=== PATIENT | male | born 1995 | race Caucasian/White ===

== ENCOUNTER 2024-08-08 14:29 | Outpatient (AMB) | payer MEDICAID, SELFPAY ==
[2024-08-08 14:41] VITALS: BP 111/72; PULSE 63; RESP 14; TEMP 36.7; O2SAT 98; BMI 32.1
--- NOTE | 2024-08-08 14:41 | ACNOTE_ITS ---
Vital Signs 08/08/24 14:41 Height 1.85 m Height Method Stated Weight 110.45 kg Weight Measurement Method Standing Scale BMI 32.1 BP 111/72 Blood Pressure Source Automatic Cuff Blood Pressure Location Left Upper Arm Position Sitting Respiration 14 Pulse 63 Pulse Source Monitor Temp 98.1 F Temp Source Oral Pulse Oximetry (%) 98 Oxygen Delivery Method Room Air Allergies/Meds Allergies & Medications Allergies No Known Allergies Allergy (Verified 08/08/24 14:43) Medication Reconciliation blood pressure test kit-large #1 ea 10/10/23 [Rx Confirmed 08/08/24] blood sugar diagnostic (Blood Glucose Test strips) #50 ea 10/10/23 [Rx Confirmed 08/08/24] atorvastatin 40 mg tablet 40 mg PO QHS 30 days #30 tabs 12/19/23 [Rx Confirmed 08/08/24] insulin lispro 100 unit/mL subcutaneous pen 8 unit (0.08 mL) subcut TID #12 mL 12/19/23 [Rx Confirmed 08/08/24] insulin glargine 100 unit/mL (3 mL) subcutaneous pen (Lantus Solostar U-100 Insulin) 40 unit (0.4 mL) subcut .qhs #15 mL 06/11/24 [Rx Confirmed 08/08/24] pen needle, diabetic 32 gauge x 1/4 (Comfort EZ Pen Posey) #100 ea 06/11/24 [Rx Confirmed 08/08/24] Mounjaro 2.5 mg/0.5 mL subcutaneous pen injector (tirzepatide) 2.5 mg (0.5 mL) subcut QWEEK 1 month #2 mL 08/08/24 [Rx] lisinopril 5 mg tablet 5 mg PO QDAY 30 days #30 tabs 08/08/24 [Rx] MA Intake Visit Data Collection New Patient or Established: Established Patient (seen at [facility] within 3 years) Seen by Clinical Staff ONLY (RN/MA): No Pain Present Currently: No Pain scale:: 0 Pain Scale Used: Marx-Argueta/Numerical PCP or OBGYN visit in last 3 months: No Smoking Status Smoking Status: Never smoker Immunization / Flu Flu Vaccine in the Last 12 Months: No Flu Vaccine Exclusion Criteria: No Exclusion Criteria Past Medical History Past Medical History NEUROLOGIC: Negative Neurological Disorders CARDIAC: Positive Hypertension; Negative Cardiac Disorders or Congestive Heart Failure RESPIRATORY: Negative Chronic Obstructive Pulmonary Disease (COPD) or Asthma GASTROINTESTINAL: Negative Gastrointestinal Disorders GENITOURINARY: Negative Genitourinary Disorders or Renal Disease ENDOCRINE: Positive Endocrine Disorders and Diabetes Mellitus Type 2; Negative Diabetes Mellitus Type 1 HEMATOLOGIC: Negative Blood Disorders or Sickle Cell Disease OTHER HISTORY: Negative Autoimmune Disease, Blood Transfusions, Anesthesia Reactions, MRSA, Clostridium Difficile or Cancer Surgical History SURGICAL: Negative Abdominal Surgery, Joint Replacement or Neurologic Surgery Social History SMOKING STATUS: Smoking status: Never smoker SECOND HAND EXPOSURE: second hand exposure: No ALCOHOL: Alcohol Intake: Current ALCOHOL FREQUENCY: Alcohol Intake Frequency: holidays/special occasions only HOUSING: Housing: Apartment LIVES WITH: Lives With: Spouse Patient Portal Wesley Social History Living Situation History Housing: Apartment Housing Other:: pt lives with fiance Tobacco History Smoking Status: Never smoker Packs per Day: 1 Number of Smoking Years (pipe): 6 Second Hand Smoke Exposure: No Alcohol History Alcohol Intake: Current Alcohol Intake Frequency: holidays/special occasions only Review of Systems Report any current symptoms Only answer those that you have currently: Past Medical History Past Medical History Have you ever been diagnosed with any of the following: Cardiology Problems Congestive Heart Failure: No Hypertension: Yes Respiratory Problems Chronic Obstructive Pulmonary Disease (COPD): No Asthma: No Genital/Urinary Problems Renal Disease: No Endocrine Problems Diabetes Mellitus Type 1: No Diabetes Mellitus Type 2: Yes Blood Problems Sickle Cell Disease: No Other Problems Autoimmune Disease: No Blood Transfusions: No Anesthesia Reactions: No MRSA: No Clostridium Difficile: No Cancer: No History of Present Illness HPI Narrative Patient presents to clinic for follow-up. He states that he was not exercising or following his many dietary restrictions during the holidays/month of June. This is reflected by an increase in his BMI to 32.1 from 30.7. Patient does endorse starting his dietary restrictions/meal plan/exercising, including cardio 3 times per week and intermittent fasting. Patient also states his Dexcom CGM has not been working as previously. Auth was submitted for [employer], currently pending. He has been occasionally checking his blood sugars with by [id number] with fasting blood sugars in 150s. Additionally for obesity/type 2 diabetes, patient is requesting to start a GLP- 1, which was previously prescribed however patient was unable to pick it up due to insurance problems. Will resend Mounjaro 2.5 mg and follow-up if prior Auth is needed. Patient also endorses having normal blood pressures and occasionally does not take 10 mg lisinopril. Will changes to 5 mg. Patient additionally did not have CT abdomen pelvis done to evaluate for pseudocyst growth. Will resend order for CT abdomen pelvis with contrast. Review of Systems Review of Systems Systems Reviewed: All systems reviewed, normal except as documented Objective/Exam Narrative Physical exam: Gen: AAOx3, pleasant to speak with HEENT: MMM, no LAD CVS: normal S1, S2. RRR. No MRG Resp: CTA B/L. No adventitious breath sounds Abd: soft, non-tender, non-distended. BS+ in all 4 quadrants MSK: Good ROM in BUE & BLE. No edema noted Neuro: CN II-XII grossly intact. Strength 5/5 in BUE & 5/5 in BLE. Psych: appropriate mood and affect. 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 He does check his fasting blood sugars which have been approximately 140s?150s at approximately 4 AM when he wakes up for work Plan: Last A1c 6.9. Ordered A1c, CMP and lipid panel, with patient to follow-up on 08/15/2024 Patient pending switch from Dexcom to freestyle bree's (2) Obesity (BMI 30.0-34.9): Status: Acute Assessment & Plan: Patient BMI increased to 32.1 from 30.7, patient states this is related to poor diet/lifestyle choices during June/holidays, and has since resumed his meal plan/portion control/exercise regimen Plan: Encouraged to continue dietary and lifestyle modifications Due to patient having type 2 diabetes and increasing fasting blood sugars, will reorder Mounjaro 2.5 mg to assist with tighter glycemic control and help with weight loss Follow-up labs as ordered above (3) Hypertension: Status: Chronic Qualifiers: Hypertension type: primary hypertension Qualified Code(s): I10 - Essential (primary) hypertension Assessment & Plan: patient occasionally forgets to take 10 mg lisinopril with blood pressure in normal range Plan: Will change lisinopril to 5 mg daily (4) Pseudocyst of pancreas due to acute pancreatitis: Status: Acute Assessment & Plan: Pseudocyst was seen on previous CT scans (September 2023, November 2023) Plan: Reordered CT abdomen pelvis with contrast to further reevaluate pancreatic pseudocyst Plan Patient needs freestyle bree's to monitor blood sugars Follow-up labs including A1c, lipid panel and CMP Added Mounjaro 2.5 mg for diabetes and obesity Decrease lisinopril to 5 mg daily Orders: Orders CT abdomen pelvis w con 09/10/24 K85.90 - Acute pancreatitis without necrosis or infection, unspecified, K86.3 - Pseudocyst of pancreas Additional Assessment Internal Medicine Attending Note: Case discussed with and agree with note and management plan of Resident Physician as per Resident's Note above. Issues of concern for present visit are as follows: Follow-up visit. Diabetes self-care reviewed including diet, exercise, footcare, eye care. Was not following dietary guidelines/exercising since last visit. BMI increased to 32.1 from 30.7. CGM has not been working. Random fingersticks ranging in the upper 100s. For now, we will continue patient on basal bolus insulin regimen, with emphasis on compliance with diet and exercise measures. Recheck hemoglobin A1c for next visit. We will resend a prescription for a CGM. We will again try to order a GLP-1 for patient. Given blood pressure readings, we will decrease lisinopril to 5 mg daily. We will do a 6-month recheck of his CT scan of abdomen pelvis to reevaluate pancreatic pseudocyst. Faustino Mccann MD Physician Billing Established Patient Established Patient: E/M Level 3-CPT 15596 Office Procedures [facility] Level of Care Nursing/Assessment Patient Status: Established Patient Nursing Assessment/Reassessment: Medication Reconciliation, Update PMH in EMR and Vital Signs Coordination of Care: Complex Care and Chronic Disease 1-5, Consent,records obtained, informed consent, Education Simp Pt/Fam, Lab and Imaging orders and Staff clarify orders Established Patient Charge Established Patient Point Assignment: 100 Established Patient Point Charge: EP Level 3 (80-115)
== END 2024-08-08 16:00 | disposition home or self-care (01) ==
LOC: HODAHC 14:29
PROVIDERS: PCP Student in an Organized Health Care Education/Training Program; Referring Provider Student in an Organized Health Care Education/Training Program; Supervising Provider Internal Medicine; Visit Provider Student in an Organized Health Care Education/Training Program
DX: K86.3 Pseudocyst of pancreas (principal); E11.9 Type 2 diabetes mellitus without complications; Z79.4 Long term (current) use of insulin; E66.9 Obesity, unspecified; Z68.32 Body mass index [BMI] 32.0-32.9, adult; I10 Essential (primary) hypertension
CPT/HCPCS: 99213; G0463

== ENCOUNTER 2024-08-22 14:04 | Outpatient (AMB) | payer MEDICAID, SELFPAY ==
[2024-08-22 14:28] VITALS: BP 124/80; PULSE 74; RESP 18; TEMP 36.7; O2SAT 98; BMI 31.7
--- NOTE | 2024-08-22 14:28 | ACNOTE_ITS ---
Vital Signs 08/22/24 14:28 Height 1.85 m Height Method Stated Weight 108.635 kg Weight Measurement Method Standing Scale BMI 31.7 BP 124/80 Blood Pressure Source Automatic Cuff Blood Pressure Location Left Upper Arm Position Sitting Respiration 18 Pulse 74 Pulse Source Monitor Temp 98.1 F Temp Source Temporal Artery Scan Pulse Oximetry (%) 98 Oxygen Delivery Method Room Air Allergies/Meds Allergies & Medications Allergies No Known Allergies Allergy (Verified 08/22/24 14:31) Medication Reconciliation blood pressure test kit-large #1 ea 10/10/23 [Rx Confirmed 08/22/24] blood sugar diagnostic (Blood Glucose Test strips) #50 ea 10/10/23 [Rx Confirmed 08/22/24] atorvastatin 40 mg tablet 40 mg PO QHS 30 days #30 tabs 12/19/23 [Rx Confirmed 08/22/24] insulin glargine 100 unit/mL (3 mL) subcutaneous pen (Lantus Solostar U-100 Insulin) 40 unit (0.4 mL) subcut .qhs #15 mL 06/11/24 [Rx Confirmed 08/22/24] pen needle, diabetic 32 gauge x 1/4 (Comfort EZ Pen Franklin) #100 ea 06/11/24 [Rx Confirmed 08/22/24] Mounjaro 2.5 mg/0.5 mL subcutaneous pen injector (tirzepatide) 2.5 mg (0.5 mL) subcut QWEEK 1 month #2 mL 08/08/24 [Rx Confirmed 08/22/24] lisinopril 5 mg tablet 5 mg PO QDAY 30 days #30 tabs 08/08/24 [Rx Confirmed 08/22/24] insulin lispro 100 unit/mL subcutaneous pen 8 unit (0.08 mL) subcut TID #12 mL 08/21/24 [Rx Confirmed 08/22/24] metformin 500 mg tablet,extended release 24 hr 500 mg PO QDAY 30 days #30 tabs 08/22/24 [Rx] MA Intake Visit Data Collection New Patient or Established: Established Patient (seen at [facility] within 3 years) Seen by Clinical Staff ONLY (RN/MA): No Pain Present Currently: No Pain scale:: 0 Pain Scale Used: Geovanna/Numerical Cordwood Cutter Helper Required: No PCP or OBGYN visit in last 3 months: Yes Hx Now: No Do You Feel Safe at Home: Yes Authorities Contacted: N/A Smoking Status Smoking Status: Never smoker Immunization / Flu Flu Vaccine in the Last 12 Months: No Flu Vaccine Exclusion Criteria: No Exclusion Criteria Past Medical History Past Medical History NEUROLOGIC: Negative Neurological Disorders CARDIAC: Positive Hypertension; Negative Cardiac Disorders or Congestive Heart Failure RESPIRATORY: Negative Chronic Obstructive Pulmonary Disease (COPD) or Asthma GASTROINTESTINAL: Negative Gastrointestinal Disorders GENITOURINARY: Negative Genitourinary Disorders or Renal Disease ENDOCRINE: Positive Endocrine Disorders and Diabetes Mellitus Type 2; Negative Diabetes Mellitus Type 1 HEMATOLOGIC: Negative Blood Disorders or Sickle Cell Disease OTHER HISTORY: Negative Autoimmune Disease, Blood Transfusions, Anesthesia Reactions, MRSA, Clostridium Difficile or Cancer Surgical History SURGICAL: Negative Abdominal Surgery, Joint Replacement or Neurologic Surgery Social History SMOKING STATUS: Smoking status: Never smoker SECOND HAND EXPOSURE: second hand exposure: No ALCOHOL: Alcohol Intake: Current ALCOHOL FREQUENCY: Alcohol Intake Frequency: holidays/special occasions only HOUSING: Housing: Apartment LIVES WITH: Lives With: Spouse Patient Portal Wesley Social History Living Situation History Housing: Apartment Housing Other:: pt lives with fiance Tobacco History Smoking Status: Never smoker Packs per Day: 1 Number of Smoking Years (pipe): 6 Second Hand Smoke Exposure: No Alcohol History Alcohol Intake: Current Alcohol Intake Frequency: holidays/special occasions only Domestic Abuse History Do You Feel Safe at Home: Yes Review of Systems Report any current symptoms Only answer those that you have currently: Past Medical History Past Medical History Have you ever been diagnosed with any of the following: Cardiology Problems Congestive Heart Failure: No Hypertension: Yes Respiratory Problems Chronic Obstructive Pulmonary Disease (COPD): No Asthma: No Genital/Urinary Problems Renal Disease: No Endocrine Problems Diabetes Mellitus Type 1: No Diabetes Mellitus Type 2: Yes Blood Problems Sickle Cell Disease: No Other Problems Autoimmune Disease: No Blood Transfusions: No Anesthesia Reactions: No MRSA: No Clostridium Difficile: No Cancer: No History of Present Illness HPI Narrative 08/26/2024: Patient returns to clinic for 2 week follow up after labs. A1c increased to 7.6 from 6.9 (March 2024), and fasting blood glucose on chem panel was 185. HDL & triglycerides have improved significantly. Since last visit, patient has already lost ~2kg with strict diet and exercise 4-5x/week, although BMI remains >30. Patient has also started intermittent fasting, and si nce blood sugars are still elevated, will add metformin to current regimen. He was advised to monitor for signs/symptoms of hypoglycemia. Patient to follow up in 2 weeks with repeat labs to evaluate renal/liver function. Patient is still pending authorization for GLP-1, as well as Freestyle Yvon CGM. CT A/P to evaluate pseudocyst is scheduled for September 2023. Review of Systems Review of Systems Systems Reviewed: All systems reviewed, normal except as documented Objective/Exam Narrative Physical exam: Gen: AAOx3, obese male, pleasant to speak with HEENT: MMM, no LAD CVS: normal S1, S2. RRR. No MRG Resp: CTA B/L. No adventitious breath sounds Abd: soft, non-tender, non-distended. BS+ in all 4 quadrants MSK: Good ROM in BUE & BLE. No edema noted Neuro: CN II-XII grossly intact. Strength 5/5 in BUE & 5/5 in BLE. Psych: appropriate mood and affect. 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 Fasting blood sugars have been 150-200s, with most recent FBG on chem panel 185. A1c returned 7.6% (increased from 6.9%) Plan: Added Metformin ER 500mg qDay for tighter glycemic control Patient advised to monitor for hypoglycemia as he is on insulin as well Repeat labs ordered in 2 weeks to evaluate renal/liver function Pending Freestyle Yvon auth (2) Obesity (BMI 30.0-34.9): Status: Acute Assessment & Plan: BMI improved; now 31.7 (from 32.1 2 weeks ago); remains >30 Attributes 5 lbs weight loss in last 2 weeks to strict diet and exercising 4- 5x/week Plan: Encouraged to continue dietary and lifestyle modifications Pending GLP-1 auth; GLP-1 will help patient lose weight and control blood sugars Discussed possibly sending referral to dietitian/bathing suit maker at next visit (3) Hypercholesteremia: Status: Chronic Assessment & Plan: Lipid panel showing improvement HDL increased; triglycerides downtrending Plan: Advised to continue diet/lifestyle modifications and continue atorvastatin (4) Pseudocyst of pancreas due to acute pancreatitis: Status: Acute Assessment & Plan: Pseudocyst was seen on previous CT scans (September 2023, November 2023) Plan: Reordered CT abdomen pelvis with contrast to further reevaluate pancreatic pseudocyst, with CT scheduled for September Plan Pending CGM and GLP-1 auth Follow up chem panel after starting metformin RTC in 2 weeks for follow up Office Procedures [facility] Level of Care Nursing/Assessment Patient Status: Established Patient Nursing Assessment/Reassessment: Medication Reconciliation, Update PMH in EMR and Vital Signs Coordination of Care: Complex Care and Chronic Disease 1-5, Consent,records obtained, informed consent, Education Simp Pt/Fam, Lab and Imaging orders and Staff clarify orders Established Patient Charge Established Patient Point Assignment: 100 Established Patient Point Charge: EP Level 3 (80-115)
== END 2024-08-22 15:34 | disposition home or self-care (01) ==
LOC: HODAHC 14:04
PROVIDERS: PCP Student in an Organized Health Care Education/Training Program; Referring Provider Student in an Organized Health Care Education/Training Program; Supervising Provider Student in an Organized Health Care Education/Training Program; Visit Provider Student in an Organized Health Care Education/Training Program
DX: E11.10 Type 2 diabetes mellitus with ketoacidosis without coma (principal); Z79.4 Long term (current) use of insulin; E66.9 Obesity, unspecified; Z68.31 Body mass index [BMI] 31.0-31.9, adult; E78.00 Pure hypercholesterolemia, unspecified; K86.3 Pseudocyst of pancreas
CPT/HCPCS: 99213; G0463

== ENCOUNTER 2024-09-05 13:19 | Outpatient (AMB) | payer MEDICAID, SELFPAY ==
[2024-09-05 13:32] VITALS: BP 134/86; PULSE 75; RESP 14; TEMP 36.7; O2SAT 98; BMI 31.6
--- NOTE | 2024-09-05 13:32 | PD.RESCLINIC ---
Vital Signs 09/05/24 13:32 Height 1.85 m Height Method Stated Weight 108.068 kg Weight Measurement Method Standing Scale BMI 31.6 BP 134/86 H Blood Pressure Source Automatic Cuff Blood Pressure Location Left Upper Arm Position Sitting Respiration 14 Pulse 75 Pulse Source Monitor Temp 98.1 F Temp Source Oral Pulse Oximetry (%) 98 Oxygen Delivery Method Room Air Allergies/Meds Allergies & Medications Allergies No Known Allergies Allergy (Verified 09/05/24 13:34) Medication Reconciliation blood pressure test kit-large #1 ea 10/10/23 [Rx Confirmed 09/05/24] blood sugar diagnostic (Blood Glucose Test strips) #50 ea 10/10/23 [Rx Confirmed 09/05/24] atorvastatin 40 mg tablet 40 mg PO QHS 30 days #30 tabs 12/19/23 [Rx Confirmed 09/05/24] insulin glargine 100 unit/mL (3 mL) subcutaneous pen (Lantus Solostar U-100 Insulin) 40 unit (0.4 mL) subcut .qhs #15 mL 06/11/24 [Rx Confirmed 09/05/24] pen needle, diabetic 32 gauge x 1/4 (Comfort EZ Pen [place]) #100 ea 06/11/24 [Rx Confirmed 09/05/24] Mounjaro 2.5 mg/0.5 mL subcutaneous pen injector (tirzepatide) 2.5 mg (0.5 mL) subcut QWEEK 1 month #2 mL 08/08/24 [Rx Confirmed 09/05/24] lisinopril 5 mg tablet 5 mg PO QDAY 30 days #30 tabs 08/08/24 [Rx Confirmed 09/05/24] insulin lispro 100 unit/mL subcutaneous pen 8 unit (0.08 mL) subcut TID #12 mL 08/21/24 [Rx Confirmed 09/05/24] metformin 500 mg tablet,extended release 24 hr 500 mg PO QDAY 30 days #30 tabs 08/22/24 [Rx Confirmed 09/05/24] MA Intake Visit Data Collection New Patient or Established: Established Patient (seen at [facility] within 3 years) Seen by Clinical Staff ONLY (RN/MA): No Pain Present Currently: No Pain scale:: 0 Pain Scale Used: MarxEdith/Numerical Manager Therapy Required: No PCP or OBGYN visit in last 3 months: Yes Hx Now: No Do You Feel Safe at Home: Yes Authorities Contacted: N/A Smoking Status Smoking Status: Never smoker Immunization / Flu Flu Vaccine in the Last 12 Months: No Flu Vaccine Exclusion Criteria: No Exclusion Criteria Past Medical History Past Medical History NEUROLOGIC: Negative Neurological Disorders CARDIAC: Positive Hypertension; Negative Cardiac Disorders or Congestive Heart Failure RESPIRATORY: Negative Chronic Obstructive Pulmonary Disease (COPD) or Asthma GASTROINTESTINAL: Negative Gastrointestinal Disorders GENITOURINARY: Negative Genitourinary Disorders or Renal Disease ENDOCRINE: Positive Endocrine Disorders and Diabetes Mellitus Type 2; Negative Diabetes Mellitus Type 1 HEMATOLOGIC: Negative Blood Disorders or Sickle Cell Disease OTHER HISTORY: Negative Autoimmune Disease, Blood Transfusions, Anesthesia Reactions, MRSA, Clostridium Difficile or Cancer Surgical History SURGICAL: Negative Abdominal Surgery, Joint Replacement or Neurologic Surgery Social History SMOKING STATUS: Smoking status: Never smoker SECOND HAND EXPOSURE: second hand exposure: No ALCOHOL: Alcohol Intake: Current ALCOHOL FREQUENCY: Alcohol Intake Frequency: holidays/special occasions only HOUSING: Housing: Apartment LIVES WITH: Lives With: Spouse Patient Portal Questionaires PHQ-9 PHQ-2 Over the last 2 weeks, how often have you been bothered by any of the following problems? 1. Little interest or pleasure in doing things: not at all 2. Feeling down, depressed, or hopeless: not at all Total score: 0 PHQ-9 3. Trouble falling or staying asleep, or sleeping too much: Not at all 4. Feeling tired or having little energy: Not at all 5. Poor appetite or overeating: Not at all 6. Feeling bad about yourself - or that you are a failure or have let yourself or your family down: Not at all 7. Trouble concentrating on things, such as reading the newspaper or watching television: Not at all 8. Moving or speaking so slowly that other people could have noticed? - Or the opposite - being so fidgety or restless that you have been moving around a lot more than usual: not at all 9. Thoughts that you would be better off or of hurting yourself in some way: Not at all Total score: 0 Source: Developed by Drs. Truman Carlson, Chetna Bearden, Jj Foster and colleagues, with an educational kemal from [employer]. Depression screen completed yes Social History Living Situation History Housing: Apartment Housing Other:: pt lives with fiance Tobacco History Smoking Status: Never smoker Packs per Day: 1 Number of Smoking Years (pipe): 6 Second Hand Smoke Exposure: No Alcohol History Alcohol Intake: Current Alcohol Intake Frequency: holidays/special occasions only Domestic Abuse History Do You Feel Safe at Home: Yes Review of Systems Report any current symptoms Only answer those that you have currently: Past Medical History Past Medical History Have you ever been diagnosed with any of the following: Cardiology Problems Congestive Heart Failure: No Hypertension: Yes Respiratory Problems Chronic Obstructive Pulmonary Disease (COPD): No Asthma: No Genital/Urinary Problems Renal Disease: No Endocrine Problems Diabetes Mellitus Type 1: No Diabetes Mellitus Type 2: Yes Blood Problems Sickle Cell Disease: No Other Problems Autoimmune Disease: No Blood Transfusions: No Anesthesia Reactions: No MRSA: No Clostridium Difficile: No Cancer: No History of Present Illness HPI Narrative 09/05: Patient returns to follow up after having labs drawn after initiating metformin. Renal and liver function within normal limits. Fasting glucose noted to be 122 on chem panel. Patient endorses improvement of fasting levels when checking at home, now 120-140s. He continues to follow diet/lifestyle modifications. He denies any hypoglycemic symptoms, lightheaded/dizziness, polyuria/polydipsia. Patient also spoke with company providing CGM, who are requesting Tax ID number, and will get that provided so patient can receive [employer] yvon. BMI 31.6 today, with patient losing ~3kg since 08/08/[address] A/P scheduled for September 10. Review of Systems Review of Systems Systems Reviewed: All systems reviewed, normal except as documented Objective/Exam Narrative Physical exam: Gen: AAOx3, obese male, pleasant to speak with HEENT: MMM, no LAD CVS: normal S1, S2. RRR. No MRG Resp: CTA B/L. No adventitious breath sounds Abd: soft, non-tender, non-distended. BS+ in all 4 quadrants MSK: Good ROM in BUE & BLE. No edema noted Neuro: CN II-XII grossly intact. Strength 5/5 in BUE & 5/5 in BLE. Psych: appropriate mood and affect. 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 Metformin ER 500mg BID was added at last visit. Renal & Liver function wnl Since then, FBG much better (120-140s) Plan: Continue Insulin and Metformin as prescribed. Patient advised to monitor for hypoglycemia as he is on insulin as well Monitor blood glucose at home Pending Freestyle Yvon auth --> will send Tax ID to [employer] (2) Obesity (BMI 30.0-34.9): Status: Acute Assessment & Plan: BMI improved; now 31.6 (from 32.1 in July); remains >30 Plan: Encouraged to continue dietary and lifestyle modifications Pending GLP-1 auth; GLP-1 will help patient lose weight and control blood sugars. CGM is crucial as patient does not have time to check finger stick POC while at work. Discussed possibly sending referral to dietitian/workers compensation manager Additional Plan Return to clinic on October 03 for follow up of CT A/P (pseudocyst) as well as diabetes follow up Office Procedures [facility] Level of Care Nursing/Assessment Patient Status: Established Patient Nursing Assessment/Reassessment: Medication Reconciliation, Update PMH in EMR and Vital Signs Coordination of Care: Complex Care and Chronic Disease 1-5, Consent,records obtained, informed consent, Education Simp Pt/Fam, Results/Orders obtained and Staff clarify orders Established Patient Charge Established Patient Point Assignment: 90 Established Patient Point Charge: EP Level 3 (80-115)
== END 2024-09-05 13:48 | disposition home or self-care (01) ==
LOC: HODAHC 13:19
PROVIDERS: PCP Student in an Organized Health Care Education/Training Program; Referring Provider Student in an Organized Health Care Education/Training Program; Supervising Provider Internal Medicine; Visit Provider Student in an Organized Health Care Education/Training Program
DX: E11.10 Type 2 diabetes mellitus with ketoacidosis without coma (principal); E66.9 Obesity, unspecified; Z68.31 Body mass index [BMI] 31.0-31.9, adult; Z79.84 Long term (current) use of oral hypoglycemic drugs; Z79.4 Long term (current) use of insulin; Z71.2 Person consulting for explanation of examination or test findings
CPT/HCPCS: 99213; G0463

== ENCOUNTER 2024-10-03 13:13 | Outpatient (AMB) | payer MEDICAID, SELFPAY ==
[2024-10-03 13:28] VITALS: BP 127/71; PULSE 70; RESP 16; TEMP 36.3; O2SAT 98; BMI 31.0
--- NOTE | 2024-10-03 13:28 | ACNOTE_ITS ---
Vital Signs 10/03/24 13:28 Height 1.85 m Height Method Stated Weight 106.821 kg Weight Measurement Method Standing Scale BMI 31.0 BP 127/71 Blood Pressure Source Automatic Cuff Blood Pressure Location Left Upper Arm Position Sitting Respiration 16 Pulse 70 Pulse Source Monitor Temp 97.3 F Temp Source Temporal Artery Scan Pulse Oximetry (%) 98 Oxygen Delivery Method Room Air Allergies/Meds Allergies & Medications Allergies No Known Allergies Allergy (Verified 10/03/24 13:29) Medication Reconciliation blood pressure test kit-large #1 ea 10/10/23 [Rx Confirmed 10/03/24] blood sugar diagnostic (Blood Glucose Test strips) #50 ea 10/10/23 [Rx Confirmed 10/03/24] pen needle, diabetic 32 gauge x 1/4 (Comfort EZ Pen [place]) #100 ea 06/11/24 [Rx Confirmed 10/03/24] lisinopril 5 mg tablet 5 mg PO QDAY 30 days #30 tabs 08/08/24 [Rx Confirmed 10/03/24] insulin lispro 100 unit/mL subcutaneous pen 8 unit (0.08 mL) subcut TID #12 mL 08/21/24 [Rx Confirmed 10/03/24] metformin 500 mg tablet,extended release 24 hr 500 mg PO QDAY 30 days #30 tabs 08/22/24 [Rx Confirmed 10/03/24] atorvastatin 40 mg tablet 40 mg PO QHS 30 days #30 tabs 10/03/24 [Rx] insulin glargine 100 unit/mL (3 mL) subcutaneous pen (Lantus Solostar U-100 Insulin) 40 unit (0.4 mL) subcut .qhs #15 mL 10/03/24 [Rx] ondansetron 4 mg disintegrating tablet 4 mg PO Q8H PRN nausea and vomiting #60 tabs 10/03/24 [Rx] tirzepatide (weight loss) 2.5 mg/0.5 mL subcutaneous pen injector (Zepbound) 2.5 mg (0.5 mL) subcut QWEEK #2 mL 10/03/24 [Rx] MA Intake Visit Data Collection New Patient or Established: Established Patient (seen at [facility] within 3 years) Seen by Clinical Staff ONLY (RN/MA): No Pain Present Currently: No Pain scale:: 0 Pain Scale Used: Marx-Argueta/Numerical Machine Or Machinery Mechanic Required: No PCP or OBGYN visit in last 3 months: Yes Hx Now: No Do You Feel Safe at Home: Yes Authorities Contacted: N/A Smoking Status Smoking Status: Never smoker Immunization / Flu Flu Vaccine in the Last 12 Months: No Flu Vaccine Exclusion Criteria: No Exclusion Criteria Past Medical History Past Medical History NEUROLOGIC: Negative Neurological Disorders CARDIAC: Positive Hypertension; Negative Cardiac Disorders or Congestive Heart Failure RESPIRATORY: Negative Chronic Obstructive Pulmonary Disease (COPD) or Asthma GASTROINTESTINAL: Negative Gastrointestinal Disorders GENITOURINARY: Negative Genitourinary Disorders or Renal Disease ENDOCRINE: Positive Endocrine Disorders and Diabetes Mellitus Type 2; Negative Diabetes Mellitus Type 1 HEMATOLOGIC: Negative Blood Disorders or Sickle Cell Disease OTHER HISTORY: Negative Autoimmune Disease, Blood Transfusions, Anesthesia Reactions, MRSA, Clostridium Difficile or Cancer Surgical History SURGICAL: Negative Abdominal Surgery, Joint Replacement or Neurologic Surgery Social History SMOKING STATUS: Smoking status: Never smoker SECOND HAND EXPOSURE: second hand exposure: No ALCOHOL: Alcohol Intake: Current ALCOHOL FREQUENCY: Alcohol Intake Frequency: holidays/special occasions only HOUSING: Housing: Apartment LIVES WITH: Lives With: Spouse Patient Portal Questionaires PHQ-9 PHQ-2 Over the last 2 weeks, how often have you been bothered by any of the following problems? 1. Little interest or pleasure in doing things: not at all PHQ-9 8. Moving or speaking so slowly that other people could have noticed? - Or the opposite - being so fidgety or restless that you have been moving around a lot more than usual: not at all Source: Developed by Drs. Truman Carlson, Chetna Bearden, Jj Foster and colleagues, with an educational kemal from [employer]. Social History Living Situation History Housing: Apartment Housing Other:: pt lives with fiance Tobacco History Smoking Status: Never smoker Packs per Day: 1 Number of Smoking Years (pipe): 6 Second Hand Smoke Exposure: No Alcohol History Alcohol Intake: Current Alcohol Intake Frequency: holidays/special occasions only Domestic Abuse History Do You Feel Safe at Home: Yes Review of Systems Report any current symptoms Only answer those that you have currently: Past Medical History Past Medical History Have you ever been diagnosed with any of the following: Cardiology Problems Congestive Heart Failure: No Hypertension: Yes Respiratory Problems Chronic Obstructive Pulmonary Disease (COPD): No Asthma: No Genital/Urinary Problems Renal Disease: No Endocrine Problems Diabetes Mellitus Type 1: No Diabetes Mellitus Type 2: Yes Blood Problems Sickle Cell Disease: No Other Problems Autoimmune Disease: No Blood Transfusions: No Anesthesia Reactions: No MRSA: No Clostridium Difficile: No Cancer: No History of Present Illness HPI Narrative 10/03: Patient seen in clinic for follow up of T2DM, obesity, and pseudocyst. For T2DM, patient received approval for Freestyle Yvon 3s, and will use CGM to monitor blood glucose. FBG has been in 120s on current regimen. Will refill lantus and atorvastatin. For obesity, patient exercises 3-4x/week and follows strict dietary restrictions, however is feeling discouraged about his slow weight loss. He spoke with his insurance company who stated he did not need prior auth for zepbound. Will order zepbound 2.5mg weekly, and uptitrate as tolerated. Ordered zofran as well, and advised of adverse effects, including constipation/nausea/vomiting/abdominal pain. Advised patient to monitor blood glucose when he starts zepbound, and to adjust insulin to prevent hypoglycemia. Gave labslip for a1c for patient's next visit. For pseudocyst, patient is scheduled for CT scan on 10/15/2024, and needs a renal panel to evaluate kidneys. RFP ordered. ROS negative. Review of Systems Review of Systems Systems Reviewed: All systems reviewed, normal except as documented Objective/Exam Narrative Physical exam: Gen: AAOx3, obese male, pleasant to speak with HEENT: MMM, no LAD CVS: normal S1, S2. RRR. No MRG Resp: CTA B/L. No adventitious breath sounds Abd: soft, non-tender, non-distended. BS+ in all 4 quadrants MSK: Good ROM in BUE & BLE. No edema noted Neuro: CN II-XII grossly intact. Strength 5/5 in BUE & 5/5 in BLE. Psych: appropriate mood and affect. 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 Assessment & Plan: CGM approval done, patient to receive in the mail FBG 120s Plan: Continue insulin & metformin Will start zepbound (below) and advised to monitor for hypoglycemia A1c ordered for next visit (2) Obesity (BMI 30.0-34.9): Status: Acute Assessment & Plan: Mild improvement in BMI since last month, now at 31 Plan: Will order zepbound 2.5mg weekly, and uptitrate as tolerated Advised to monitor blood glucose (above) to prevent hypoglycemia Continue diet/lifestyle modifications Ordered zofran prn for nausea associated with zepbound Advised that patient may feel constipated, can use OTC senna (3) 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 Will help T2DM as well CGM approved Office Procedures [facility] Level of Care Nursing/Assessment Patient Status: Established Patient Nursing Assessment/Reassessment: Medication Reconciliation, Update PMH in EMR and Vital Signs Coordination of Care: Complex Care and Chronic Disease 1-5, Consent,records obtained, informed consent, Education Simp Pt/Fam and Staff clarify orders Established Patient Charge Established Patient Point Assignment: 85 Established Patient Point Charge: EP Level 3 (80-115)
== END 2024-10-03 14:55 | disposition home or self-care (01) ==
LOC: HODAHC 13:13
PROVIDERS: PCP Student in an Organized Health Care Education/Training Program; Referring Provider Student in an Organized Health Care Education/Training Program; Supervising Provider Student in an Organized Health Care Education/Training Program; Visit Provider Student in an Organized Health Care Education/Training Program
DX: E11.10 Type 2 diabetes mellitus with ketoacidosis without coma (principal); Z79.4 Long term (current) use of insulin; Z79.84 Long term (current) use of oral hypoglycemic drugs; E66.9 Obesity, unspecified; Z68.31 Body mass index [BMI] 31.0-31.9, adult; K86.3 Pseudocyst of pancreas
CPT/HCPCS: 99213; G0463

== ENCOUNTER → 2024-10-15 | Outpatient (CLI) | payer MEDICAID, SELFPAY ==
--- NOTE | 2024-10-15 10:30 | XR_ITS ---
Examination: CT abdomen with intravenous contrast CT pelvis with intravenous contrast 2-D coronal reconstructions 2-D sagittal reconstructions Date and time of exam:October 15, 2024 1002 hrs. Comparison November 13, 2023 Indications: History 8.4 x 5.6 cm pancreatic pseudocyst on CT study October 14, 2023. CTDI: vol (mGy) 10.8 DLP: (mGycm) 772 Technique: Multiple axial sections of the abdomen and pelvis have been obtained. 64 slice high-resolution scanner used. 3 mm axial sections have been obtained, post intravenous injection 60 cc [id number] 2-D sagittal, coronal reconstructions obtained. Low dose protocols were performed. One or more of the following dose reduction techniques were used; automated exposure control, adjustment of the mA and/or KV according to patient size, use of iterative reconstruction technique. Findings: Splenomegaly 16 cm No focal liver lesions No gallstones Smaller pancreatic pseudocyst, 4 x 3 cm No peripancreatic edema No hydronephrosis Aorta normal size No bowel obstruction Normal appendix Colonic diverticulosis, no diverticulitis Urinary bladder intact Impression: Smaller pancreatic pseudocyst, 4 x 3 cm compared to 8.4 x 5.6 cm on October 24, 2023
== END | disposition home or self-care (01) ==
LOC: CCTX 10:15
PROVIDERS: PCP Student in an Organized Health Care Education/Training Program; Referring Provider Student in an Organized Health Care Education/Training Program; Visit Provider Student in an Organized Health Care Education/Training Program
DX: K86.3 Pseudocyst of pancreas (principal)
CPT/HCPCS: 74177; A4649; Q9967

== ENCOUNTER 2024-12-04 10:02 | Outpatient (AMB) | payer MEDICAID, SELFPAY ==
[2024-12-04 10:07] VITALS: BP 155/82; PULSE 75; RESP 18; TEMP 36.6; O2SAT 97; BMI 30.1
--- NOTE | 2024-12-04 10:07 | PD.RESCLINIC ---
Vital Signs 12/04/24 10:07 Height 1.85 m Height Method Stated Weight 103.136 kg Weight Measurement Method Standing Scale BMI 30.1 BP 155/82 H Blood Pressure Source Automatic Cuff Blood Pressure Location Right Upper Arm Position Sitting Respiration 18 Pulse 75 Pulse Source Monitor Temp 97.8 F Temp Source Temporal Artery Scan Pulse Oximetry (%) 97 Oxygen Delivery Method Room Air Allergies/Meds Allergies & Medications Allergies No Known Allergies Allergy (Verified 12/04/24 10:08) Medication Reconciliation blood pressure test kit-large #1 ea 10/10/23 [Rx Confirmed 12/04/24] blood sugar diagnostic (Blood Glucose Test strips) #50 ea 10/10/23 [Rx Confirmed 12/04/24] pen needle, diabetic 32 gauge x 1/4 (Comfort EZ Pen [place]) #100 ea 06/11/24 [Rx Confirmed 12/04/24] insulin lispro 100 unit/mL subcutaneous pen 8 unit (0.08 mL) subcut TID #12 mL 08/21/24 [Rx Confirmed 12/04/24] atorvastatin 40 mg tablet 40 mg PO QHS 30 days #30 tabs 10/03/24 [Rx Confirmed 12/04/24] insulin glargine 100 unit/mL (3 mL) subcutaneous pen (Lantus Solostar U-100 Insulin) 40 unit (0.4 mL) subcut .qhs #15 mL 10/03/24 [Rx Confirmed 12/04/24] ondansetron 4 mg disintegrating tablet 4 mg PO Q8H PRN nausea and vomiting #60 tabs 10/03/24 [Rx Confirmed 12/04/24] metformin 500 mg tablet,extended release 24 hr 500 mg PO QDAY 30 days #30 tabs 11/28/24 [Rx Confirmed 12/04/24] lisinopril 5 mg tablet 5 mg PO QDAY 30 days #30 tabs 12/04/24 [Rx] tirzepatide 5 mg/0.5 mL subcutaneous pen injector 5 mg (0.5 mL) subcut QWEEK #2 mL 12/04/24 [Rx] MA Intake Visit Data Collection New Patient or Established: Established Patient (seen at [facility] within 3 years) Seen by Clinical Staff ONLY (RN/MA): No Pain Present Currently: No Pain scale:: 0 Pain Scale Used: Marx-Argueta/Numerical Hand Cementer Required: No PCP or OBGYN visit in last 3 months: No Hx Now: No Do You Feel Safe at Home: Yes Authorities Contacted: N/A Smoking Status Smoking Status: Never smoker Immunization / Flu Flu Vaccine in the Last 12 Months: No Flu Vaccine Exclusion Criteria: No Exclusion Criteria Past Medical History Past Medical History NEUROLOGIC: Negative Neurological Disorders CARDIAC: Positive Hypertension; Negative Cardiac Disorders or Congestive Heart Failure RESPIRATORY: Negative Chronic Obstructive Pulmonary Disease (COPD) or Asthma GASTROINTESTINAL: Negative Gastrointestinal Disorders GENITOURINARY: Negative Genitourinary Disorders or Renal Disease ENDOCRINE: Positive Endocrine Disorders and Diabetes Mellitus Type 2; Negative Diabetes Mellitus Type 1 HEMATOLOGIC: Negative Blood Disorders or Sickle Cell Disease OTHER HISTORY: Negative Autoimmune Disease, Blood Transfusions, Anesthesia Reactions, MRSA, Clostridium Difficile or Cancer Surgical History SURGICAL: Negative Abdominal Surgery, Joint Replacement or Neurologic Surgery Social History SMOKING STATUS: Smoking status: Never smoker SECOND HAND EXPOSURE: second hand exposure: No ALCOHOL: Alcohol Intake: Current ALCOHOL FREQUENCY: Alcohol Intake Frequency: holidays/special occasions only HOUSING: Housing: Apartment LIVES WITH: Lives With: Spouse Patient Portal Questionaires PHQ-9 PHQ-2 Over the last 2 weeks, how often have you been bothered by any of the following problems? 1. Little interest or pleasure in doing things: not at all PHQ-9 8. Moving or speaking so slowly that other people could have noticed? - Or the opposite - being so fidgety or restless that you have been moving around a lot more than usual: not at all Source: Developed by Drs. Truman Carlson, Chetna Bearden, Jj Foster and colleagues, with an educational kemal from [employer]. Social History Living Situation History Housing: Apartment Housing Other:: pt lives with fiance Tobacco History Smoking Status: Never smoker Packs per Day: 1 Number of Smoking Years (pipe): 6 Second Hand Smoke Exposure: No Alcohol History Alcohol Intake: Current Alcohol Intake Frequency: holidays/special occasions only Domestic Abuse History Do You Feel Safe at Home: Yes Review of Systems Report any current symptoms Only answer those that you have currently: Past Medical History Past Medical History Have you ever been diagnosed with any of the following: Cardiology Problems Congestive Heart Failure: No Hypertension: Yes Respiratory Problems Chronic Obstructive Pulmonary Disease (COPD): No Asthma: No Genital/Urinary Problems Renal Disease: No Endocrine Problems Diabetes Mellitus Type 1: No Diabetes Mellitus Type 2: Yes Blood Problems Sickle Cell Disease: No Other Problems Autoimmune Disease: No Blood Transfusions: No Anesthesia Reactions: No MRSA: No Clostridium Difficile: No Cancer: No History of Present Illness HPI Narrative 12/04/2024: Patient seen for follow up of DM, obesity and pancreatic pseudocyst. His A1c improved, 6.8 from 7.6. Patient continues to use insulin (basal, bolus), metformin, and zepbound. He is also using a CGM, and notes he is in range about 70% of the time. He attributes poor glycemic control to traveling for work in the past month, where he was unable to follow his diet he has at home. Normally, patient's FBG is 120-130. He also continues to exercise (cardio, weight lifting) and has lost ~3kg since last visit. BMI 30.1. Encouraged patient to continue with diet/lifestyle modifications, in addition to zepbound. Discussed increasing dose to 5mg weekly. Patient denies any nausea, abdominal pain, constipation, neck/thyroid masses, or other adverse effects related to zepbound. Zepbound increased to 5mg/weekly. Abd CT was reviewed. Pancreatic pseudocyst is decreasing in size, and patient has no acute abdominal complaints. Will follow up in 1 year. BP noted to be elevated, SBP 155, however patient states he walked to clinic and had coffee this morning. No acute complaints. On recheck, SBP 138. Advised patient to continue his lisinopril, which was refilled. Review of Systems Review of Systems Systems Reviewed: All systems reviewed, normal except as documented Objective/Exam Narrative Physical exam: Gen: AAOx3, obese male, pleasant to speak with HEENT: MMM, no LAD, no neck masses or thyromegaly CVS: normal S1, S2. RRR. No MRG Resp: CTA B/L. No adventitious breath sounds Abd: soft, non-tender, non-distended. BS+ in all 4 quadrants MSK: Good ROM in BUE & BLE. No edema noted Skin: occasional bruises from paintballing Neuro: CN II-XII grossly intact. Strength 5/5 in BUE & 5/5 in BLE. Psych: appropriate mood and affect. 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 use Qualified Code(s): E11.10 - Type 2 diabetes mellitus with ketoacidosis without coma; Z79.4 - [facility] (current) use of insulin Assessment & Plan: A1c improved to 6.8 Plan: Continue insulin, metformin and zepbound monitor BG with CGM Repeat A1c in 3 months (2) Obesity (BMI 30.0-34.9): Status: Acute Assessment & Plan: BMI improved, 30.1 Plan: Encouraged patient to continue diet/lifestyle modifications, including weight lifting and cardio Increased zepbound to 5mg weekly Can consider increasing dose at next visit with patient discussion (3) Pseudocyst of pancreas due to acute pancreatitis: Status: Acute Assessment & Plan: CT reviewed, pseudocyst decreasing in size Plan: Follow up in [address] for resolution of pseudocyst, or earlier if patient begins to have abdominal pain (4) Hypertension: Status: Chronic Qualifiers: Hypertension type: primary hypertension Qualified Code(s): I10 - Essential (primary) hypertension Assessment & Plan: SBP 155 in clinic Repeat 15 mins later was 138 Plan: advised patient to continue his lisinopril 5mg, which was refilled bp was WNL on previous visits, can consider increasing lisinopril if patients SBP >130 Plan RTC in 3 months for follow up A1c Continue medications as prescribed Monitor BG and BP, consider adjusting medications for tight glycemic/BP control Office Procedures [facility] Level of Care Nursing/Assessment Patient Status: Established Patient Nursing Assessment/Reassessment: Medication Reconciliation, Update PMH in EMR and Vital Signs Coordination of Care: Complex Care and Chronic Disease 1-5, Consent,records obtained, informed consent, Education Simp Pt/Fam and Staff clarify orders Established Patient Charge Established Patient Point Assignment: 85 Established Patient Point Charge: EP Level 3 (80-115)
== END 2024-12-04 11:01 | disposition home or self-care (01) ==
LOC: HODAHC 10:02
PROVIDERS: PCP Student in an Organized Health Care Education/Training Program; Referring Provider Student in an Organized Health Care Education/Training Program
DX: E11.10 Type 2 diabetes mellitus with ketoacidosis without coma (principal); Z79.4 Long term (current) use of insulin; E66.9 Obesity, unspecified; Z68.30 Body mass index [BMI] 30.0-30.9, adult; K86.3 Pseudocyst of pancreas; I10 Essential (primary) hypertension; Z79.84 Long term (current) use of oral hypoglycemic drugs
CPT/HCPCS: 99213; G0463

== ENCOUNTER 2025-04-11 13:56 | Outpatient (AMB) | payer MEDICAID, SELFPAY ==
[2025-04-11 14:16] VITALS: BP 134/82; PULSE 75; RESP 18; TEMP 36.2; O2SAT 98; BMI 30.1
--- NOTE | 2025-04-11 14:16 | PD.RESCLINIC ---
Vital Signs 04/11/25 14:16 Height 1.85 m Height Method Stated Weight 103.192 kg Weight Measurement Method Standing Scale BMI 30.1 BP 134/82 H Blood Pressure Source Automatic Cuff Blood Pressure Location Left Upper Arm Position Sitting Respiration 18 Pulse 75 Pulse Source Monitor Temp 97.1 F Temp Source Oral Pulse Oximetry (%) 98 Oxygen Delivery Method Room Air Allergies/Meds Allergies & Medications Allergies No Known Allergies Allergy (Verified 04/11/25 14:16) Medication Reconciliation blood pressure test kit-large #1 ea 10/10/23 [Rx Confirmed 04/11/25] blood sugar diagnostic (Blood Glucose Test strips) #50 ea 10/10/23 [Rx Confirmed 04/11/25] lisinopril 5 mg tablet 5 mg PO QDAY 30 days #30 tabs 12/04/24 [Rx Confirmed 04/11/25] atorvastatin 40 mg tablet 40 mg PO QHS 30 days #30 tabs 04/07/25 [Rx Confirmed 04/11/25] insulin glargine 100 unit/mL (3 mL) subcutaneous pen (Lantus Solostar U-100 Insulin) 40 unit (0.4 mL) subcut .qhs #15 mL 04/07/25 [Rx Confirmed 04/11/25] metformin 500 mg tablet,extended release 24 hr 500 mg PO QDAY 30 days #30 tabs 04/07/25 [Rx Confirmed 04/11/25] pen needle, diabetic 32 gauge x 1/4 (Comfort EZ Pen [place]) #100 ea 04/07/25 [Rx Confirmed 04/11/25] MA Intake Visit Data Collection New Patient or Established: Established Patient (seen at [facility] within 3 years) Seen by Clinical Staff ONLY (RN/MA): No Pain Present Currently: No Pain scale:: 0 Pain Scale Used: Marx-Argueta/Numerical PCP or OBGYN visit in last 3 months: No Smoking Status Smoking Status: Never smoker Immunization / Flu Flu Vaccine in the Last 12 Months: No Flu Vaccine Exclusion Criteria: No Exclusion Criteria Past Medical History Past Medical History NEUROLOGIC: Negative Neurological Disorders CARDIAC: Positive Hypertension; Negative Cardiac Disorders or Congestive Heart Failure RESPIRATORY: Negative Chronic Obstructive Pulmonary Disease (COPD) or Asthma GASTROINTESTINAL: Negative Gastrointestinal Disorders GENITOURINARY: Negative Genitourinary Disorders or Renal Disease ENDOCRINE: Positive Endocrine Disorders and Diabetes Mellitus Type 2; Negative Diabetes Mellitus Type 1 HEMATOLOGIC: Negative Blood Disorders or Sickle Cell Disease OTHER HISTORY: Negative Autoimmune Disease, Blood Transfusions, Anesthesia Reactions, MRSA, Clostridium Difficile or Cancer Surgical History SURGICAL: Negative Abdominal Surgery, Joint Replacement or Neurologic Surgery Social History SMOKING STATUS: Smoking status: Never smoker SECOND HAND EXPOSURE: second hand exposure: No ALCOHOL: Alcohol Intake: Current ALCOHOL FREQUENCY: Alcohol Intake Frequency: holidays/special occasions only HOUSING: Housing: Apartment LIVES WITH: Lives With: Spouse Patient Portal Questionaires PHQ-9 PHQ-2 Over the last 2 weeks, how often have you been bothered by any of the following problems? 1. Little interest or pleasure in doing things: not at all PHQ-9 8. Moving or speaking so slowly that other people could have noticed? - Or the opposite - being so fidgety or restless that you have been moving around a lot more than usual: not at all Source: Developed by Drs. Truman Carlson, Chetna Bearden, Jj Foster and colleagues, with an educational kemal from [employer]. Social History Living Situation History Housing: Apartment Housing Other:: pt lives with fiance Tobacco History Smoking Status: Never smoker Packs per Day: 1 Number of Smoking Years (pipe): 6 Second Hand Smoke Exposure: No Alcohol History Alcohol Intake: Current Alcohol Intake Frequency: holidays/special occasions only Review of Systems Report any current symptoms Only answer those that you have currently: Past Medical History Past Medical History Have you ever been diagnosed with any of the following: Cardiology Problems Congestive Heart Failure: No Hypertension: Yes Respiratory Problems Chronic Obstructive Pulmonary Disease (COPD): No Asthma: No Genital/Urinary Problems Renal Disease: No Endocrine Problems Diabetes Mellitus Type 1: No Diabetes Mellitus Type 2: Yes Blood Problems Sickle Cell Disease: No Other Problems Autoimmune Disease: No Blood Transfusions: No Anesthesia Reactions: No MRSA: No Clostridium Difficile: No Cancer: No History of Present Illness HPI Narrative Gildardo Maradiaga is a 30-year-old male with a history of type 2 diabetes mellitus, hypertension, and pancreatic pseudocyst who is presenting to the [facility] for follow-up for diabetes management. Previous regimen included glargine 38 units at bedtime, metformin 500 mg daily, and Mounjaro but states that he recently stopped Mounjaro due to an episode of hypoglycemia in the 50s and was symptomatic. Since then he has only been on long-acting insulin and metformin. Did not bring phone in today so unable to look at CGM readings but per patient and , values can be inconsistent. States that he recently had issues running out of long-acting and metformin and recently blood sugars have been on the higher side but prior to that fasting sugars were approximately 120-130. Will obtain A1c in addition to annual labs and follow-up via phone call for updates. Of note, history of pancreatic pseudocyst that was shrinking as seen on imaging during last visit and has been asymptomatic at this time so no need to follow-up. Review of Systems Review of Systems Systems Reviewed: All systems reviewed, normal except as documented Assessment & Plan Diagnosis / Problem List (1) Type 2 diabetes mellitus: Status: Chronic Qualifiers: Diabetes mellitus penitentiary insulin use: with long chain quiller tender use Diabetes mellitus complication status: with ketoacidosis Qualified Code(s): E11.10 - Type 2 diabetes mellitus with ketoacidosis without coma; Z79.4 - skilled nursing (current) use of insulin Plan: - Continue glargine 38 units HS and metformin 500 mg daily - Follow-up A1c (previous A1c was 6.8) - Follow-up on 05/30 via phone call - Can make adjustments with metformin and long-acting depending on next visit values (2) Hypertension: Status: Chronic Qualifiers: Hypertension type: primary hypertension Qualified Code(s): I10 - Essential (primary) hypertension Assessment & Plan: BP in office 134/82 Plan: - Lisinopril 5 mg daily (3) Hypercholesteremia: Status: Chronic Plan: - Continue atorvastatin 40 mg daily - Follow-up lipid panel Office Procedures [facility] Level of Care Nursing/Assessment Patient Status: Established Patient Nursing Assessment/Reassessment: Medication Reconciliation, Update PMH in EMR and Vital Signs Coordination of Care: Complex Care and Chronic Disease 1-5, Education Complex Pt/Fam, Lab and Imaging orders, Results/Orders obtained and Staff clarify orders Established Patient Charge Established Patient Point Assignment: 105 Established Patient Point Charge: Level 3 (80-115)
== END 2025-04-11 15:05 | disposition home or self-care (01) ==
LOC: HODAHC 13:56
PROVIDERS: Supervising Provider Internal Medicine; Visit Provider Internal Medicine
DX: E11.10 Type 2 diabetes mellitus with ketoacidosis without coma (principal); I10 Essential (primary) hypertension; Z79.84 Long term (current) use of oral hypoglycemic drugs; Z79.4 Long term (current) use of insulin; E78.00 Pure hypercholesterolemia, unspecified
CPT/HCPCS: 99213; G0463

== ENCOUNTER 2025-05-30 14:57 | Outpatient (AMB) | payer MEDICAID, SELFPAY ==
--- NOTE | 2025-05-30 14:58 | PD.RESCLINIC ---
Allergies/Meds Allergies & Medications Allergies No Known Allergies Allergy (Verified 05/30/25 14:58) Medication Reconciliation blood pressure test kit-large #1 ea 10/10/23 [Rx Confirmed 05/30/25] blood sugar diagnostic (Blood Glucose Test strips) #50 ea 10/10/23 [Rx Confirmed 05/30/25] lisinopril 5 mg tablet 5 mg PO QDAY 30 days #30 tabs 12/04/24 [Rx Confirmed 05/30/25] atorvastatin 40 mg tablet 40 mg PO QHS 30 days #30 tabs 04/07/25 [Rx Confirmed 05/30/25] insulin glargine 100 unit/mL (3 mL) subcutaneous pen (Lantus Solostar U-100 Insulin) 40 unit (0.4 mL) subcut .qhs #15 mL 04/07/25 [Rx Confirmed 05/30/25] metformin 500 mg tablet,extended release 24 hr 500 mg PO QDAY 30 days #30 tabs 04/07/25 [Rx Confirmed 05/30/25] pen needle, diabetic 32 gauge x 1/4 (Comfort EZ Pen [place]) #100 ea 04/07/25 [Rx Confirmed 05/30/25] atorvastatin 40 mg tablet 40 mg PO QHS 30 days #30 tabs 05/30/25 [Rx] blood sugar diagnostic (Blood Glucose Test strips) #50 ea 05/30/25 [Rx] empagliflozin 10 mg tablet (Jardiance) 10 mg PO QDAY #30 tabs 05/30/25 [Rx] insulin degludec 100 unit/mL (3 mL) subcutaneous pen 40 unit (0.4 mL) subcut QHS #15 mL 05/30/25 [Rx] lisinopril 5 mg tablet 5 mg PO QDAY 30 days #30 tabs 05/30/25 [Rx] metformin 500 mg tablet,extended release 24hr (osmotic) (Fortamet) 500 mg PO BID #60 tabs 05/30/25 [Rx] MA Intake Visit Data Collection New Patient or Established: Established Patient (seen at [facility] within 3 years) Seen by Clinical Staff ONLY (RN/MA): No Pain Present Currently: No Pain scale:: 0 Pain Scale Used: Marx-Argueta/Numerical Bookseamer Blindstitch Required: No PCP or OBGYN visit in last 3 months: No Smoking Status Smoking Status: Never smoker For Televisit only Telemed Video/Phone Visit: Yes Verbal consent obtained for Telemed visit?: Yes Immunization / Flu Flu Vaccine in the Last 12 Months: No Flu Vaccine Exclusion Criteria: Refused by Patient Past Medical History Past Medical History NEUROLOGIC: Negative Neurological Disorders CARDIAC: Positive Hypertension; Negative Cardiac Disorders or Congestive Heart Failure RESPIRATORY: Negative Chronic Obstructive Pulmonary Disease (COPD) or Asthma GASTROINTESTINAL: Negative Gastrointestinal Disorders GENITOURINARY: Negative Genitourinary Disorders or Renal Disease ENDOCRINE: Positive Endocrine Disorders and Diabetes Mellitus Type 2; Negative Diabetes Mellitus Type 1 HEMATOLOGIC: Negative Blood Disorders or Sickle Cell Disease OTHER HISTORY: Negative Autoimmune Disease, Blood Transfusions, Anesthesia Reactions, MRSA, Clostridium Difficile or Cancer Surgical History SURGICAL: Negative Abdominal Surgery, Joint Replacement or Neurologic Surgery Social History SMOKING STATUS: Smoking status: Never smoker SECOND HAND EXPOSURE: second hand exposure: No ALCOHOL: Alcohol Intake: Current ALCOHOL FREQUENCY: Alcohol Intake Frequency: holidays/special occasions only HOUSING: Housing: Apartment LIVES WITH: Lives With: Spouse Patient Portal Questionaires PHQ-9 PHQ-2 Over the last 2 weeks, how often have you been bothered by any of the following problems? 1. Little interest or pleasure in doing things: not at all PHQ-9 8. Moving or speaking so slowly that other people could have noticed? - Or the opposite - being so fidgety or restless that you have been moving around a lot more than usual: not at all Source: Developed by Drs. Truman Carlson, Chetna Bearden, Jj Foster and colleagues, with an educational kemal from [employer]. Social History Living Situation History Housing: Apartment Housing Other:: pt lives with fiance Tobacco History Smoking Status: Never smoker Packs per Day: 1 Number of Smoking Years (pipe): 6 Second Hand Smoke Exposure: No Alcohol History Alcohol Intake: Current Alcohol Intake Frequency: holidays/special occasions only Review of Systems Report any current symptoms Only answer those that you have currently: Past Medical History Past Medical History Have you ever been diagnosed with any of the following: Cardiology Problems Congestive Heart Failure: No Hypertension: Yes Respiratory Problems Chronic Obstructive Pulmonary Disease (COPD): No Asthma: No Genital/Urinary Problems Renal Disease: No Endocrine Problems Diabetes Mellitus Type 1: No Diabetes Mellitus Type 2: Yes Blood Problems Sickle Cell Disease: No Other Problems Autoimmune Disease: No Blood Transfusions: No Anesthesia Reactions: No MRSA: No Clostridium Difficile: No Cancer: No History of Present Illness HPI Narrative Gildardo Maradiaga is a 30-year-old male with a history of type 2 diabetes mellitus, hypertension, and pancreatic pseudocyst who is following up on lab results via telemedecine over phone call. Patient reports taking glargine 38 units at bedtime, and metformin 500 mg daily. He had stopped taking Mounjaro due to an episode of hypoglycemia in the 50s, when he was shaking, diaphoretic, with N/V. Since then he has only been on long-acting insulin and metformin.States that morning glc runs in 120's to 140's usually. Hgb A1c 7.7 (05/09/2025) which has risen from prev level 6.8 (11/26/2024) Of note, history of pancreatic pseudocyst that was shrinking as seen on imaging during last visit and has been asymptomatic at this time so no need to follow-up. 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 Patient reports fastin AM glc to be 120's to 140's range. No hypoglycemic events reported after discontinuing Mounjaro. Plan: - Continue glargine 40 units HS - Raise metformin 500 mg to twice daily - Added Jardiance 10mg Qday - Pt may reduce night time glargine in successive 5u reductions if morning glc is too low. (2) Hypertension: Status: Chronic Qualifiers: Hypertension type: primary hypertension Qualified Code(s): I10 - Essential (primary) hypertension Assessment & Plan: BP in office 134/82, as per in person visit 04/11 Plan: - continue Lisinopril 5 mg daily (3) Hypercholesteremia: Status: Chronic Assessment & Plan: 05/30/2025 labs showed TG 73, HDL 38, LDL 77, VLDL 77. Insignificant risk of ASCVD in 10y on moderate intensity statin. Plan: - Continue atorvastatin 40 mg daily - Follow-up lipid panel Plan This case was discussed with my attending physician, Dr. Jackie Montejo, DO PGY I Disclaimer: This note was dictated by speech recognition. Minor errors in imaging system administrator may be present due to voice recognition software. Office Procedures [facility] Level of Care Telehealth Telemed Phone/Video with patient at home & Dr,PA,FINANCIAL REPORTING CONSULTANT: Yes
== END 2025-05-30 15:52 | disposition home or self-care (01) ==
LOC: HODAHC 14:57
PROVIDERS: Supervising Provider Internal Medicine
DX: E11.10 Type 2 diabetes mellitus with ketoacidosis without coma (principal); Z79.4 Long term (current) use of insulin; I10 Essential (primary) hypertension; E78.00 Pure hypercholesterolemia, unspecified; K86.3 Pseudocyst of pancreas
CPT/HCPCS: 99212; G0463